=== PATIENT | female | born 1985 | race American Indian/Alaskan Native ===

== ENCOUNTER 2018-02-20 14:55 | Outpatient (CLI) | payer SELFPAY, OTHER ==
[2018-02-20] MEDS: LACTATED RINGER'S 1000 ML IV (16:18)
[2018-02-20] MEDS: LR 1,000 ML IV (17:22)
[2018-02-20 18:25] LABS: BEDSIDE GLUCOSE 97 MG/DL (70-105)
[2018-02-20 22:12] LABS: BEDSIDE GLUCOSE 88 MG/DL (70-105)
[2018-02-21 06:42] LABS: BEDSIDE GLUCOSE 86 MG/DL (70-105)
== END 2018-02-21 08:21 | disposition home or self-care (01) ==
LOC: M LDI 14:55 → M LDO 14:55 → M LDI 14:55 → M LDO 02-21 08:21
DX: O36.8130 Decreased fetal movements, third trimester, not applicable or unspecified (principal); Z3A.37 37 weeks gestation of pregnancy; Z91.14 Patient's other noncompliance with medication regimen; O24.419 Gestational diabetes mellitus in pregnancy, unspecified control
CPT/HCPCS: 76815

== ENCOUNTER 2018-03-20 17:37 | Inpatient (IN) | payer OTHER, SELFPAY ==
[2018-03-20] MEDS ORDERED: LR 1,000 ML IV (20:22)
[2018-03-20] MEDS: LACTATED RINGER'S 1000 ML IV (20:22)
[2018-03-20 20:49] LABS: HEMATOCRIT 33.7 % (36.0-47.0); HEMOGLOBIN 10.2 g/dl (12.0-15.5); MEAN CORPUSCULAR HEMOGLOBIN 23.6 pg (27.0-33.0); MEAN CORPUSCULAR HGB CONC 30.3 g/dl (32.0-36.5); PLATELET COUNT, AUTOMATED 314 10^3/uL (150-450); RED BLOOD COUNT 4.32 10^6/uL (4.00-5.40); RED CELL DISTRIBUTION WIDTH 15.9 % (11.5-14.5); WHITE BLOOD COUNT 13.2 10^3/uL (4.0-10.0)
[2018-03-20] MEDS ORDERED: FENTANYL 2MCG/ML ROPIVACAINE 0.2% IN 0.9% NACL 200ML IVBAG As Ordered (21:16)
[2018-03-20] MEDS ORDERED: FENTANYL/ROPIVACAINE/NACL BAG 200 ML EPIDURAL (22:45)
[2018-03-20] MEDS ORDERED: ePHEDrine SULFATE 25 MG/5 ML(5MG/ML) SYRINGE IV (22:45)
[2018-03-20] MEDS ORDERED: REFRIGERATOR IV KEYS XX (22:45)
[2018-03-20] MEDS ORDERED: NALOXONE INJ 0.4 MG/1 ML VIAL (J2310) IV (22:45)
[2018-03-20] MEDS ORDERED: LACTATED RINGER'S 1000 ML IV (22:45)
[2018-03-20] MEDS ORDERED: diphenhydrAMINE INJ 50MG/ML VIAL (J1200) IV (22:45)
[2018-03-20] MEDS ORDERED: ONDANSETRON 4MG/2ML VIAL (J2405) IV (22:45)
[2018-03-20] MEDS ORDERED: EPIDURAL/PCA KEYS XX (22:45)
[2018-03-20] MEDS ORDERED: EPIDURAL COMMENT XX (22:45)
[2018-03-20] MEDS ORDERED: OXYTOCIN 30 UNITS IN 0.9% NaCl 500ML IV BAG (J2590) As Ordered (23:44)
[2018-03-21] MEDS: OXYTOCIN DRIP 30 UNITS in APPROPRIATE DILUENT 1 EA IV (00:20)
[2018-03-21] MEDS ORDERED: MEASLES,MUMPS,RUBELLA VACCINE INJ (MMR-II) (90707) SC (00:30)
[2018-03-21] MEDS ORDERED: RHOGAM 300 MCG (1500 IU) INJ (J2790) IM (00:30)
[2018-03-21] MEDS: miSOPROStol 200 MCG TAB (S0191) PR (00:30)
[2018-03-21] MEDS: IBUPROFEN 800 MG TAB PO ×2 (02:44→11:16)
[2018-03-21] MEDS: METOCLOPRAMIDE INJ 10MG/2ML VIAL (J2765) IV (04:17)
[2018-03-21 04:23] LABS: BEDSIDE GLUCOSE 58 MG/DL (70-105)
[2018-03-21] MEDS ORDERED: METHYLERGONOVINE MALEATE 0.2 MG/ML VIAL (J2210) As Ordered (04:35)
[2018-03-21] MEDS: METHYLERGONOVINE MALEATE 0.2 MG/ML VIAL (J2210) IM (04:44)
[2018-03-21 06:48] LABS: HEMATOCRIT 24.2 % (36.0-47.0); MEAN CORPUSCULAR HEMOGLOBIN 23.6 pg (27.0-33.0); MEAN CORPUSCULAR VOLUME 76.1 fl (80.0-96.0); PLATELET COUNT, AUTOMATED 262 10^3/uL (150-450); RED BLOOD COUNT 3.18 10^6/uL (4.00-5.40); RED CELL DISTRIBUTION WIDTH 15.6 % (11.5-14.5); WHITE BLOOD COUNT 18.1 10^3/uL (4.0-10.0)
[2018-03-21 06:55] LABS: HEMOGLOBIN 7.5 g/dl (12.0-15.5)
[2018-03-21] MEDS: PRENATAL VITAMINS CHEWABLE TABLET PO (08:48)
[2018-03-21] MEDS: METHYLERGONOVINE MALEATE 0.2 MG TAB PO ×4 (08:48→20:51)
[2018-03-21] MEDS: DOCUSATE SODIUM 100 MG CAP PO ×2 (08:48→20:51)
[2018-03-21] MEDS: ACETAMINOPHEN TAB 650MG DOSE (2X325MG) PO ×2 (08:49→15:17)
[2018-03-21 14:14] LABS: HEMATOCRIT 23.8 % (36.0-47.0); HEMOGLOBIN 7.5 g/dl (12.0-15.5); MEAN CORPUSCULAR HEMOGLOBIN 24.4 pg (27.0-33.0); MEAN CORPUSCULAR HGB CONC 31.5 g/dl (32.0-36.5); MEAN CORPUSCULAR VOLUME 77.3 fl (80.0-96.0); PLATELET COUNT, AUTOMATED 296 10^3/uL (150-450); RED BLOOD COUNT 3.08 10^6/uL (4.00-5.40); WHITE BLOOD COUNT 18.1 10^3/uL (4.0-10.0)
[2018-03-21 17:25] LABS: IMMEDIATE SPIN CROSSMATCH 1 2
[2018-03-22] MEDS: IBUPROFEN 800 MG TAB PO (00:45)
[2018-03-22] MEDS: METHYLERGONOVINE MALEATE 0.2 MG TAB PO ×2 (01:16→05:19)
[2018-03-22 06:59] LABS: HEMATOCRIT 25.5 % (36.0-47.0); HEMOGLOBIN 8.3 g/dl (12.0-15.5); MEAN CORPUSCULAR HEMOGLOBIN 25.9 pg (27.0-33.0); MEAN CORPUSCULAR HGB CONC 32.5 g/dl (32.0-36.5); MEAN CORPUSCULAR VOLUME 79.7 fl (80.0-96.0); PLATELET COUNT, AUTOMATED 236 10^3/uL (150-450); RED CELL DISTRIBUTION WIDTH 16.8 % (11.5-14.5); WHITE BLOOD COUNT 17.9 10^3/uL (4.0-10.0)
[2018-03-22] MEDS: PRENATAL VITAMINS CHEWABLE TABLET PO (09:20)
[2018-03-22] MEDS: DOCUSATE SODIUM 100 MG CAP PO (09:20)
== END 2018-03-22 10:20 | disposition home or self-care (01) | DRG 774 ==
LOC: M LDO 17:37 → M OBS 03-21 02:28 → M LDI 20:17
PROVIDERS: Obstetrics & Gynecology; Pediatrics
PROC: 10E0XZZ Delivery of Products of Conception, External Approach (ICD-10-PCS; principal; 2018-03-21)
PROC: 30233N1 Transfusion of Nonautologous Red Blood Cells into Peripheral Vein, Percutaneous Approach (ICD-10-PCS; 2018-03-21)
DX: O48.0 Post-term pregnancy (principal); O72.1 Other immediate postpartum hemorrhage; O24.429 Gestational diabetes mellitus in childbirth, unspecified control; Z3A.41 41 weeks gestation of pregnancy; Z37.0 Single live birth; O99.03 Anemia complicating the puerperium; D64.9 Anemia, unspecified